=== PATIENT | male | born 1950 | race Caucasian/White ===

== ENCOUNTER 2018-06-02 14:20 | Emergency (ER) | payer MEDICARE ==
[~2018-06-02] VITALS: Ht 170.2 cm; Wt 78.0 kg
[2018-06-02 15:13] LABS: CLARITY,URINE SLIGHTLY CLOUDY (Clear); COLOR,URINE YELLOW (Yellow); GLUCOSE, URINE NEGATIVE (Neg); KETONES,URINE TRACE mg/dl (Neg); LEUKOCYTE ESTERASE ,URINE NEGATIVE (Neg); NITRITES, URINE NEGATIVE (Neg); OCCULT BLOOD,URINE LARGE (Neg); PH,URINE 5.5 (4.8-8.0); PROTEIN,URINE 30 mg/dl (Neg); UA COLLECTION TYPE CLN CATCH MIDSTREAM; UROBILINOGEN,URINE 0.2 E.U/dL (0.2-1.0)
[2018-06-02 15:21] LABS: AMORPHOUS URATES 1+; BACTERIA,URINE NONE SEEN /HPF (Neg); MUCUS STRANDS FEW /LPF (Neg); RBC,URINE 0-2 /HPF (0-2); SQUAMOUS EPITHELIAL CELL,UR NONE SEEN /LPF (FEW); WBC,URINE NONE SEEN /HPF (0-4)
[2018-06-02 15:59] LABS: BASOPHILS # (AUTO) 0.1 X10'3 (0-0.2); BASOPHILS % (AUTO) 0.6 % (0-1); EOSINOPHILS # (AUTO) 0.1 X10'3 (0-0.9); EOSINOPHILS % (AUTO) 1.2 % (0-6); HEMATOCRIT 42.6 % (42.0-52.0); HEMOGLOBIN 14.9 g/dl (14.0-17.9); LYMPHOCYTES # (AUTO) 1.3 X10'3 (1.1-4.8); LYMPHOCYTES % (AUTO) 11.9 % (21-51); MEAN CORPUSCULAR HEMOGLOBIN 31.8 PG (27.0-31.0); MEAN CORPUSCULAR HGB CONC 34.9 g/dL (33.0-36.5); MEAN CORPUSCULAR VOLUME 91.1 FL (78-98); MEAN PLATELET VOLUME 7.9 FL (7.4-10.4); MONOCYTES # (AUTO) 0.8 X10'3 (0-0.9); MONOCYTES % (AUTO) 7.1 % (2-12); NEUTROPHILS # (AUTO) 8.5 X10'3 (1.8-7.7); NEUTROPHILS % (AUTO) 79.2 % (42-75); PLATELET COUNT 193 X10'3 (140-440); RED BLOOD COUNT 4.68 X10'6 (4.70-6.10); RED CELL DISTRIBUTION WIDTH 13.8 % (11.5-14.5); WHITE BLOOD COUNT 10.7 X10'3 (4.5-11.0)
[2018-06-02] MEDS ORDERED: morphine 2 MG/ML inj. syringe IV ONE ×2 (16:00→16:45)
[2018-06-02] MEDS ORDERED: ondansetron/PF 4mg/2ml inj IV ONE (16:00)
[2018-06-02] MEDS ORDERED: ketorolac tromethamine 15mg/ml inj. IV ONE (16:00)
[2018-06-02 16:11] LABS: ALANINE AMINOTRANSFERASE 23 U/L (12-78); ALBUMIN 3.9 G/DL (3.4-5.0); ALBUMIN/GLOBULIN RATIO 1.1 (1.1-1.5); ALKALINE PHOSPHATASE 59 IU/L (46-116); ANION GAP 10 (8-16); ASPARTATE AMINO TRANSFERASE 22 U/L (10-37); BILIRUBIN,TOTAL 0.4 MG/DL (0.1-1.0); BLOOD UREA NITROGEN 19 MG/DL (7-18); BUN/CREATININE RATIO 16.7 (5.4-32.0); CALCIUM 8.9 MG/DL (8.5-10.1); CHLORIDE 103 MMOL/L (99-107); CREATININE 1.14 MG/DL (0.60-1.10); GLUCOSE 131 MG/DL (70-104); POTASSIUM 3.5 MMOL/L (3.5-5.1); SODIUM 139 MMOL/L (135-145); TOTAL CARBON DIOXIDE 25.6 MMOL/L (24-32); TOTAL PROTEIN 7.3 G/DL (6.4-8.2); eGFR 64 ML/MIN
[2018-06-02] MEDS ORDERED: FLO0.4C PO (17:54)
[2018-06-02] MEDS ORDERED: HYDR-4353 PO (17:54)
[2018-06-02] MEDS ORDERED: ONDA4TAB6 PO (17:56)
[2018-06-02 18:47] VITALS: BP 127/88
== END 2018-06-02 18:48 | disposition home or self-care (01) ==
LOC: ER 14:20
DX: N20.0 Calculus of kidney (principal); Z88.1 Allergy status to other antibiotic agents
CPT/HCPCS: 36415; 74018; 74176; 80053; 81001; 85025; 85610; 96374; 96375; 96376; 99284; J1885; J2270; J2405

== ENCOUNTER 2022-07-22 05:26 | Day surgery (SDC) | payer MEDICARE ==
[2022-07-15 10:58] LABS: ALBUMIN 3.1 G/DL (3.4-5.0); ALBUMIN/GLOBULIN RATIO 0.9 (1.1-1.5); ALKALINE PHOSPHATASE 50 IU/L (46-116); BLOOD UREA NITROGEN 17 MG/DL (7-18); BUN/CREATININE RATIO 21.8 (10.0-20.0); CALCIUM 8.4 MG/DL (8.5-10.1); CHLORIDE 106 MMOL/L (99-107); CREATININE 0.78 MG/DL (0.60-1.10); PRE OP ALT 17 U/L (30-65); PRE OP ANION GAP 10 (8-16); PRE OP AST 15 U/L (10-37); PRE OP BILIRUB, TOTAL 0.5 MG/DL (0.0-1.0); PRE OP GLUCOSE 109 MG/DL (70-104); PRE OP SODIUM 141 MMOL/L (135-145); TOTAL CARBON DIOXIDE 24.7 MMOL/L (24-32); TOTAL PROTEIN 6.4 G/DL (6.4-8.2); eGFR > 90 ML/MIN
[~2022-07-22] VITALS: Ht 170.2 cm; Wt 77.9 kg
[~2022-07-22 05:26] MED LIST: ALPHA LIPOIC ACID; APPLE CIDER VINEGAR; GINGER ROOT; HYDR12.55 PO; ringers solution, lacted 1,000 ML IV SCH
[2022-07-22] MEDS ORDERED: famotidine 20mg tablet PO ONE (05:30)
[2022-07-22] MEDS ORDERED: cefazolin 2gm/D5W 100mL 100 ML IV ONE (05:30)
[2022-07-22 06:00] VITALS: BP 140/98
[2022-07-22] MEDS ORDERED: LIDOcaine 1% W/epiNEPHrine 1:100,000 20ml vial ONE (06:28)
[2022-07-22] MEDS ORDERED: TETRACAINE 0.5% 4 ML OPHTHALMIC DROPS ONE (06:29)
[2022-07-22 06:56] LABS: BASOPHILS # (AUTO) 0.1 X10'3 (0-0.2); BASOPHILS % (AUTO) 1.2 % (0-1); EOSINOPHILS # (AUTO) 0.2 X10'3 (0-0.9); EOSINOPHILS % (AUTO) 3.1 % (0-6); LYMPHOCYTES # (AUTO) 1.2 X10'3 (1.1-4.8); LYMPHOCYTES % (AUTO) 20.8 % (21-51); MEAN CORPUSCULAR HEMOGLOBIN 32.1 PG (27.0-31.0); MEAN CORPUSCULAR HGB CONC 34.9 g/dL (33.0-36.5); MEAN CORPUSCULAR VOLUME 91.7 FL (78-98); MEAN PLATELET VOLUME 7.8 FL (7.4-10.4); MONOCYTES # (AUTO) 0.5 X10'3 (0-0.9); MONOCYTES % (AUTO) 9.2 % (2-12); NEUTROPHILS # (AUTO) 3.7 X10'3 (1.8-7.7); NEUTROPHILS % (AUTO) 65.7 % (42-75); PRE OP HEMATOCRIT 41.7 % (42.0-52.0); PRE OP HEMOGLOBIN 14.6 g/dL (14.0-17.9); PRE OP PLATELET COUNT 199 X10'3 (140-440); RED BLOOD COUNT 4.54 X10'6 (4.70-6.10); RED CELL DISTRIBUTION WIDTH 14.3 % (11.5-14.5)
[2022-07-22] MEDS ORDERED: fentaNYL/PF 50MCG/1 ML 2ML syringe ONE ×2 (07:14→07:53)
[2022-07-22] MEDS ORDERED: midazolam 1 mg/ML 2ml injection ONE (07:15)
[2022-07-22] MEDS ORDERED: ketamine 50mg/5ml syringe ONE (07:46)
[2022-07-22 08:18] VITALS: BP 119/82
--- NOTE | 2022-07-22 08:18 | NUR ---
Received from OR via [facility], accompanied by Anesthesiologist DR. ALBA and report given by Anesthesiolgist. RIGHT HAND 20G PIV WITH LR RUNNING. VS. DENIES PAIN. BILATERAL EYELIDS WITH STITCHES. PATIENT A&O.
[2022-07-22 08:28] VITALS: BP 122/84
[2022-07-22] MEDS ORDERED: propofol inj 40 ML IV ONE (08:33)
[2022-07-22 08:38] VITALS: BP 134/83
[2022-07-22 08:48] VITALS: BP 138/85
--- NOTE | 2022-07-22 09:00 | NUR ---
PATIENT MEETS DISCHARGE CRITERIA. DENIES PAIN. BILATERAL EYELIDS APPEAR CLEAN. ALL BELONGINGS SENT WITH PATIENT. INSTRUCTIONS UNDERSTOOD. DISCHARGED HOME WITH INSTRUCTIONS WITH , TIMOTHY.
== END 2022-07-22 08:58 | disposition home or self-care (01) ==
LOC: PAS 05:26
PROVIDERS: ATTEND Specialist
DX: H02.831 Dermatochalasis of right upper eyelid (principal); H02.834 Dermatochalasis of left upper eyelid; F32.A Depression, unspecified; I10 Essential (primary) hypertension; Z98.890 Other specified postprocedural states; Z88.1 Allergy status to other antibiotic agents; Z79.899 Other long term (current) drug therapy; Z98.52 Vasectomy status; F12.91 Cannabis use, unspecified, in remission; Z87.442 Personal history of urinary calculi
CPT/HCPCS: 15823; 36415; 80053; 82948; 84132; 85025; A6402; J0690; J2250; J2704; J3010; J3490; J7030; J7120; Z7506; Z7512; A4215; A4618; A6410; A6449; A7000